=== PATIENT | female | born 1975 | race Hispanic/Latino ===

== ENCOUNTER 2020-07-20 08:29 | Emergency (ER) | payer BC, OTHER ==
[2020-07-20 08:35] VITALS: BP 134/87; PULSE 114
--- NOTE | 2020-07-20 10:13 | EDM.PDOC ---
ED HPI GENERAL MEDICAL PROBLEM - General Chief Complaint: Respiratory Problem Time Seen by Provider: 07/20/20 08:50 Source of Information: Reports: Patient History Limitations: Reports: No Limitations - History of Present Illness INITIAL COMMENTS - FREE TEXT/NARRATIVE: Pt. presents to ER with 24 hour history of cough, sore throat, chest congestion and fever. She states that it started yesterday AM. Pt. lives at home with her daughter. Pt. states that she was not febrile until this AM. Initially, she thought she was experiencing "allergies" until she developed a fever today. Pt. knows of no obvious convid 19 exposures. Denies travel outside of the [facility]. Denies any shortness of breath or chest pain. Denies any nausea or vomiting. Pt. works at [employer] in [place], [place]. Onset Date: 07/19/20 Location: Reports: Chest, Generalized Associated Symptoms: Reports: Cough, Fever/Chills, Malaise. Denies: Chest Pain, Diaphoresis, Headaches, Nausea/Vomiting, Rash, Seizure, Shortness of Breath, Weakness - Related Data Allergies Allergy/AdvReac Type Severity Reaction Status Date / Time No Known Allergies Allergy Verified 07/20/20 08:37 Home Meds: Home Meds metFORMIN HCl [Metformin HCl] 500 mg PO DAILY 07/27/15 [History] Aspirin 81 mg PO DAILY 07/20/20 [History] Losartan [Cozaar] 25 mg PO DAILY 07/20/20 [History] atorvaSTATin [Lipitor] 10 mg PO DAILY 07/20/20 [History] Past Medical History - Past Health History Medical/Surgical History: Denies Medical/Surgical History Other Gastrointestinal History: States had hernia repair without complications Social & Family History - Tobacco Use Smoking Status *Q: Never Smoker - Alcohol Use Number of Drinks Per Day: 1 - Recreational Drug Use Recreational Drug Use: No ED ROS GENERAL - Review of Systems Review Of Systems: See Below Constitutional: Reports: No Symptoms HEENT: Reports: No Symptoms, Throat Pain Respiratory: Reports: Cough Cardiovascular: Reports: No Symptoms Endocrine: Reports: No Symptoms GI/Abdominal: Reports: No Symptoms : Reports: No Symptoms Musculoskeletal: Reports: No Symptoms Skin: Reports: No Symptoms Neurological: Reports: No Symptoms Psychiatric: Reports: No Symptoms Hematologic/Lymphatic: Reports: No Symptoms Immunologic: Reports: No Symptoms ED EXAM, GENERAL - Physical Exam Exam: See Below Exam Limited By: No Limitations General Appearance: Alert, WD/WN, No Apparent Distress Eye Exam: Bilateral Eye: EOMI, Normal Fundi, Normal Inspection, PERRL Ears: Normal External Exam, Normal Canal, Hearing Grossly Normal, Normal TMs Ear Exam: Bilateral Ear: Auricle Normal, Canal Normal, TM normal Nose: Normal Inspection, Normal Mucosa, No Blood Throat/Mouth: Normal Inspection, Normal Lips, Normal Teeth, Normal Gums, Normal Oropharynx, Normal Voice, No Airway Compromise Head: Atraumatic, Normocephalic Neck: Normal Inspection, Supple, Non-Tender, Full Range of Motion Respiratory/Chest: No Respiratory Distress, Lungs Clear, Normal Breath Sounds, No Accessory Muscle Use, Chest Non-Tender Cardiovascular: Normal Peripheral Pulses, Regular Rate, Rhythm, No Edema, No Gallop, No JVD, No Murmur, No Rub Peripheral Pulses: 4+: Radial (L) Extremities: Normal Inspection, Normal Range of Motion, Slow Capillary Refill Neurological: Alert, Oriented, CN II-XII Intact, Normal Cognition, Normal Gait, Normal Reflexes, No Motor/Sensory Deficits Psychiatric: Normal Affect, Normal Mood Skin Exam: Warm, Dry, Intact, Normal Color, No Rash Lymphatic: No Adenopathy Course - Vital Signs Last Recorded V/S: Last Vital Signs Temp 36.9 C 07/20/20 08:34 Pulse 114 H 07/20/20 08:34 Resp 16 07/20/20 08:34 BP 134/87 07/20/20 08:34 Pulse Ox 96 07/20/20 08:34 - Orders/Labs/Meds Labs: Laboratory Tests 07/20/20 Range/Units 08:50 COVID-19 ([facility]) Positive H (NEGATIVE) Departure - Departure Time of Disposition: 10:00 Disposition: Home, Self-Care 01 Clinical Impression: COVID-19 - Discharge Information Instructions: COVID-19 Frequently Asked Questions, COVID-19, Infection Prevention in the Home, Prevent the Spread of COVID-19 if You Are Sick - [facility] Referrals: Frances Martins MD [Primary Care Provider] - Forms: ED Department Discharge Additional Instructions: I contacted the [facility] of [facility] and they will be in contact with you. Quarantine at home for now. The Dept. of Health will be in contact with you rega rding how long you have to quarantine for. Your daughter should quarentine for 14 days as well, as she is a close contact. Telehealth follow-up within the next few days with Dr. Martins. Drink plenty of fluids. Tylenol as needed for fever/discomfort. Sepsis Event Note (ED) - Evaluation Sepsis Screening Result: No Definite Risk - Focused Exam Vital Signs: Vital Signs Temp Pulse Resp BP Pulse Ox 07/20/20 08:34 36.9 C 114 H 16 134/87 96 - Problem List Review Problem List Initiated/Reviewed/Updated: Yes - Assessment/Plan Plan: I contacted the Board of [facility] and they will be in contact with you. Quarantine at home for now. The Dept. of Health will be in contact with you regarding how long you have to quarantine for. Your daughter should quarentine for 14 days as well, as she is a close contact. Telehealth follow-up within the next few days with Dr. Martins. Drink plenty of fluids. Tylenol as needed for fever/discomfort.
== END 2020-07-20 09:55 | disposition home or self-care (01) ==
LOC: VM.ED 08:29
DX: U07.1 COVID-19 (principal); Z79.82 Long term (current) use of aspirin
CPT/HCPCS: 99283; 99284; U0002